=== PATIENT | female | born 1955 | race Two or more races ===

== ENCOUNTER 2019-12-25 21:17 | Emergency (ER) | payer SELFPAY ==
[~2019-12-25] VITALS: Ht 165.1 cm; Wt 81.6 kg
--- NOTE | 2019-12-25 21:30 | Emergency Room Report ---
History of Present Illness General Chief Complaint: Altered Level of Consciousness Source: EMS Present Illness HPI This is an approximately 46-72-ay[age]-old female presents with altered mental status. Unknown medical history. Unknown surgical history or social history. Patient was unresponsive on the bus. According to the data center solutions architect, bus and trolley inspecting dispatcher called 911 because she was unresponsive. She was on the bus for a while. She was talking to herself and arguing with passenger. On the last stop, she was slumped over on the chair and was unresponsive. He called 911. EMS unable to get an IV on her. They gave her Narcan intranasally. No response. Unable to get any other history from this patient. COVID-19 risk:Contact w/high r: No COVID-19 risk:Travel to affect: No Has patient experienced adair: No Allergies: Coded Allergies: UNABLE TO ASSESS (Unverified , 12/25/19) Patient History Past Medical History: see triage record, old chart reviewed, unable to obtain Past Surgical History: unable to obtain Pertinent Family History: unable to obtain Social History: Reports: alcohol use Now: No Immunizations: other Reviewed Nursing Documentation: PMH: Agreed; PSxH: Agreed Nursing Documentation-PMH Past Medical History Deferred: Patient Unconscious Review of Systems All Other Systems: limited - Secondary to her condition Physical Exam Vital Signs Date Time Temp Pulse Resp B/P (MAP) Pulse Ox O2 Delivery O2 Flow Rate FiO2 12/25/19 21:20 97.9 78 16 127/73 (91) 100 Room Air Vitals normal Sp02 EP Interpretation: reviewed, normal General Appearance: well appearing, no apparent distress, other - Unresponsive ; alcoholic smell on breath Head: normocephalic, atraumatic Eyes: bilateral eye PERRL - 2 to 3 mm, bilateral eye EOMI ENT: hearing grossly normal, normal pharynx Neck: full range of motion, supple, no meningismus Respiratory: chest non-tender, lungs clear, normal breath sounds, other - 3 x 5 area of ecchymosis to the left upper chest Cardiovascular #1: regular rate, rhythm, no murmur Gastrointestinal: normal bowel sounds, non tender, no mass, no organomegaly, no bruit, non-distended Musculoskeletal: back normal, normal range of motion, swelling - 1+ pitting edema Neurologic: other - Grimaces and withdraws to painful stimuli Medical Decision Making Diagnostic Impression: Primary Impression: Alcohol intoxication Qualified Codes: F10.920 - Alcohol use, unspecified with intoxication, uncomplicated Additional Impression: Alcoholic liver disease ER Course Patient presents with altered mental status. No response to Narcan per EMS. I did not find any idea on her belongings. She appeared to be homeless. There is however a small bottle of vodka along with water bottles in her bags. Patient is not awake. She admits to drinking vodka and beer tonight. She has scattered bruising throughout her body. I suspect this is because of her alcoholic liver disease and elevated INR. There is no direct trauma. No evidence of ACS, PE, dissection to name a few. Negative for bleed or CVA. Will discharge home in the morning. EKG Diagnostic Results Rate: normal Rhythm: NSR ST Segments: no acute changes Rhythm Strip Diag. Results EP Interpretation: yes Rate: 79 Rhythm: NSR, no PVC's, no ectopy CT/MRI/US Diagnostic Results CT/MRI/US Diagnostic Results : Imaging Test Ordered: CT head Impression Per radiologist neg Last Vital Signs Date Time Temp Pulse Resp B/P (MAP) Pulse Ox O2 Delivery O2 Flow Rate FiO2 12/25/19 21:20 97.9 78 16 127/73 (91) 100 Room Air Status: improved Disposition: HOME, SELF-CARE Condition: Stable Additional Instructions: Stop drinking alcohol. Follow-up with rehab. Return if symptoms worsen. Kyle Armendariz MD Dec 25, 2019 21:30
--- NOTE | 2019-12-25 21:45 | NUR ---
ED Nurse Note: Recieved pt BIBA from on the bus, pt elicited bizzare behavior before "passing out", pt arrived on gurney with eyes forcefully closed, not verbally responding but when pain inflicted pt responses, pt appears to be selectively mute, MD at bedside immediately, pt gowned and palced on cardiac monitoring, will resume care as ordered and closely monitor.
--- NOTE | 2019-12-25 21:57 | Diagnostic Imaging Report ---
EXAM: CT Head Without Intravenous Contrast CLINICAL HISTORY: AMS TECHNIQUE: Axial computed tomography images of the head/brain without intravenous contrast. CTDI is 53.4 mGy and DLP is 1045.5 mGy-cm. One or more of the following dose reduction techniques were used: automated exposure control, adjustment of the mA and/or kV according to patient size, use of iterative reconstruction technique. COMPARISON: No relevant prior studies available. FINDINGS: Brain: No hemorrhage, extra-axial fluid collection, mass effect, or edema. No grossly evident acute ischemic infarct. Bones/joints: Unremarkable. No acute fracture. Soft tissues: Unremarkable. Sinuses: Unremarkable as visualized. Mastoid air cells: Unremarkable as visualized. No mastoid effusion. IMPRESSION: 1. No acute intracranial abnormality.
[2019-12-25 22:09] LABS: HEMATOCRIT 29.4 % (37.0-47.0); HEMOGLOBIN 9.5 G/DL (12.0-16.0); MEAN CORPUSCULAR VOLUME 97 FL (80-99); PLATELET COUNT 51 K/UL (150-450); RED BLOOD COUNT 3.04 M/UL (4.20-5.40); RED CELL DISTRIBUTION WIDTH 16.5 % (11.6-14.8)
[2019-12-25 22:18] LABS: ALANINE AMINOTRANSFERASE 72 U/L (12-78); ALBUMIN 2.9 G/DL (3.4-5.0); ALBUMIN/GLOBULIN RATIO 0.9 (1.0-2.7); ALKALINE PHOSPHATASE 136 U/L (46-116); ANION GAP 11 mmol/L (5-15); ASPARTATE AMINO TRANSFERASE 116 U/L (15-37); BILIRUBIN,TOTAL 1.8 MG/DL (0.2-1.0); BLOOD UREA NITROGEN 8 mg/dL (7-18); CALCIUM 8.2 MG/DL (8.5-10.1); CARBON DIOXIDE 28 MMOL/L (21-32); CHLORIDE 112 MMOL/L (98-107); CREATININE 0.6 MG/DL (0.55-1.30); POTASSIUM 2.8 MMOL/L (3.5-5.1); SODIUM 152 MMOL/L (136-145)
[2019-12-25 22:22] LABS: WHITE BLOOD COUNT 1.7 K/UL (4.8-10.8)
[2019-12-25 22:27] LABS: APPEARANCE,URINE CLEAR; BILIRUBIN, URINE NEGATIVE (NEGATIVE); COLOR,URINE PALE YELLOW; GLUCOSE, URINE (UA) NEGATIVE (NEGATIVE); KETONES,URINE NEGATIVE (NEGATIVE); LEUKOCYTE ESTERASE ,URINE 1+ (NEGATIVE); NITRITE,URINE NEGATIVE (NEGATIVE); PH,URINE 7 (4.5-8.0); PROTEIN,URINE NEGATIVE (NEGATIVE); UROBILINOGEN,URINE NORMAL MG/DL (0.0-1.0)
[2019-12-25 22:30] VITALS: BP 119/78
[2019-12-25 22:31] LABS: AMMONIA 61 umol/L (11-32)
--- NOTE | 2019-12-25 23:00 | NUR ---
ED Nurse Note: Pt is more awake and alert, conversing and speaking, pt states she does nto recall what happend, pt has strong alcohol odor noted on breath, MD aware, pt deneis cp or any pain, denies drug use, pt does state is homeless, will resume care as ordered and closely monitor.
[2019-12-26] VITALS: BP 112/66
[2019-12-26 01:16] LABS: INR 1.2 (0.9-1.1)
[2019-12-26] MEDS ORDERED: GI Cocktail 50 ML LIQD ORAL ONE (01:30)
[2019-12-26] MEDS ORDERED: Mylanta II UD 30ml ORAL ONE (01:30)
[2019-12-26] MEDS ORDERED: Lidocaine 2% Visc 15ml soln ORAL ONE (01:30)
--- NOTE | 2019-12-26 02:00 | NUR ---
ED Nurse Note: Pt sleeping quietly, given sandwich to eat and juice, tolerated well, pt is completely awake, alert and oriented x 4, calm and pleasant, pt has been discharged, will release in am due to homelessness and detention opening, pt given IV potassium, tolerated well, IV site patent, pt denies cp or any pain, no sob or labored breathing, pt resting in bed quietly, will continue to monitor and dishcarge in am when appropriate.
--- NOTE | 2019-12-26 05:35 | NUR ---
ER DISCHARGE NOTE: Patient is being discharged from medical care. Awake, alert and oriented x3. After care instructions, including referral to community resources were given. Patient verbalized understanding of After care instructions; at this time patient does not request medications, equipment or placement. Patient signed patient consent in the medical record for patient destination upon discharge. All medical devices such as IV and ID band were removed. Patient ambulated out with all personal belongings with steady gait.
[2019-12-26 05:50] VITALS: BP 112/66
== END 2019-12-26 06:00 | disposition home or self-care (01) ==
LOC: EDBD 21:17 → EMR 21:45 → EDBD 21:45 → EMR 12-26 06:00
DX: F10.129 Alcohol abuse with intoxication, unspecified (principal); K70.9 Alcoholic liver disease, unspecified; R60.0 Localized edema
CPT/HCPCS: 36415; 70450; 80053; 80307; 81001; 81025; 82140; 82248; 84484; 85007; 85025; 85610; 85730; 93005; 96361; 96365; 99284; G0480; J3480; J7030